=== PATIENT | female | born 1975 | race Two or more races ===

== ENCOUNTER → 2020-06-18 07:00 | Outpatient (CLI) | payer OTHER | END | disposition home or self-care (01) | LOC: ADM 05-21 13:00 → AMB-ENDOS 05-28 13:15 → LAB 07:00 → AMB-ENDOS 06-25 13:15 → EDSTATUS 06-25 13:15 | PROVIDERS: ATTEND Surgery | DX: U07.1 COVID-19 (principal); K21.9 Gastro-esophageal reflux disease without esophagitis; Z01.812 Encounter for preprocedural laboratory examination ==

== ENCOUNTER 2020-09-24 05:35 | Day surgery (SDC) | payer OTHER | END 2020-09-24 10:40 | disposition home or self-care (01) | LOC: AMB-ENDOS 05:35 | PROVIDERS: ATTEND Surgery | DX: D13.1 Benign neoplasm of stomach (principal); K44.9 Diaphragmatic hernia without obstruction or gangrene; Z20.828 Contact with and (suspected) exposure to other viral communicable diseases ==